=== PATIENT | female | born 1995 | race Native Hawaiian/Other Pacific Islander ===

== ENCOUNTER 2017-10-06 21:13 | Emergency (ER) | payer OTHER ==
[2017-10-06 21:22] VITALS: RESP 16; TEMP 98.3; O2SAT 100
[2017-10-06] MEDS ORDERED: Sodium Chloride 0.9% 1,000 ML IV STA (22:04)
[2017-10-06] MEDS ORDERED: DiphenhydrAMINE 50 mg/ml Inj IV STA (22:04)
[2017-10-06] MEDS ORDERED: DiphenhydrAMINE 50 mg/ml Inj ONE (22:10)
[2017-10-06] MEDS ORDERED: Famotidine 20mg/50ml 20 MG/50 ML BAG IVPB ONE (22:11)
--- NOTE | 2017-10-06 22:41 | ED PDOC ---
HPI: Allergic Reaction Time Seen by Provider: 10/06/17 21:44 Chief Complaint (Nursing): Allergic Reaction Chief Complaint (Provider): Allergic reaction History Per: Patient History/Exam Limitations: no limitations Onset/Duration Of Symptoms: Days Current Symptoms Are (Timing): Still Present Context: Other (medication) Possible Cause: Medication Associated Symptoms: Skin Rash, Itching Home/EMS Treatment: Benadryl Additional History Per: Patient Additional Complaint(s): 22yo [place] female, no past medical history, presents to ER for evaluation of an allergic reaction. Patient states yesterday was day 3 of a course of Cipprofloxacin which she had been taking for a UTI and yesterday evening, she noted a mild itchy rash to her neck and trunk. Patient states she took Benadryl with improvement in her symptoms; additionally reports she called her PMD who changed the cippro to macrobid. Patient states she did not start the macrobid and this evening she noted a recurrent rash to her trunk, neck and groin. She took Pepcid and Benadryl prior to arrival with mild relief of symptoms. Patient states she did have facial swelling but denies any shortness of breath, trouble swallowing. She has no other medical complaints. Past Medical History Reviewed: Historical Data, Nursing Documentation, Vital Signs Vital Signs: Last Vital Signs Temp 98.3 F 10/06/17 21:18 Pulse 94 H 10/06/17 21:18 Resp 16 10/06/17 21:18 BP 160/95 H 10/06/17 21:18 Pulse Ox 100 10/06/17 21:18 - Medical History PMH: No Chronic Diseases - Surgical History Surgical History: No Surg Hx - Family History Family History: States: No Known Family Hx - Home Medications Home Medications: Ambulatory Orders Medication Instructions Recorded Famotidine [Pepcid] 20 mg PO Q12 #14 tab 10/06/17 Methylprednisolone [Medrol Dosepak] 4 mg PO ASDIR #1 pkg 10/06/17 - Allergies Allergies/Adverse Reactions: Allergies Allergy/AdvReac Type Severity Reaction Status Date / Time No Known Allergies Allergy Verified 10/06/17 21:17 Review of Systems ROS Statement: Except As Marked, All Systems Reviewed And Found Negative ENT: Positive for: Other (facial swelling). Negative for: Mouth Swelling, Throat Swelling Skin: Positive for: Rash Physical Exam - Reviewed Nursing Documentation Reviewed: Yes Vital Signs Reviewed: Yes - Physical Exam Appears: Positive for: Non-toxic, No Acute Distress Head Exam: Positive for: ATRAUMATIC, NORMAL INSPECTION, NORMOCEPHALIC Skin: Positive for: Warm, Dry, Rash (urticarial rash noted to neck, chest and back) Eye Exam: Positive for: Normal appearance, EOMI, PERRL ENT: Positive for: Normal ENT Inspection. Negative for: Other (throat swelling) Neck: Positive for: Normal, Supple Cardiovascular/Chest: Positive for: Regular Rate, Rhythm Respiratory: Positive for: Normal Breath Sounds. Negative for: Respiratory Distress Gastrointestinal/Abdominal: Positive for: Normal Exam, Soft. Negative for: Tenderness Extremity: Positive for: Normal ROM Neurologic/Psych: Positive for: Alert, Oriented. 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 Patient was advised to stop usage of Ciprofloxacin, as she has Macrobid to continue to treat UTI. Dx: allergic urticaria Condition: improved Scribe Attestation: Documented by Suzanne Weaver and Loretta Bai, acting as a scribe for Chino Arreola MD Provider Scribe Attestation: All medical record entries made by the Scribe were at my direction and personally dictated by me. I have reviewed the chart and agree that the record accurately reflects my personal performance of the history, physical exam, medical decision making, and the department course for this patient. I have also personally directed, reviewed, and agree with the discharge instructions and disposition.
[2017-10-07 01:01] VITALS: BP 118/70; PULSE 86
== END 2017-10-06 23:45 | disposition home or self-care (01) ==
LOC: H.ER 21:13
DX: L50.0 Allergic urticaria (principal); N39.0 Urinary tract infection, site not specified
CPT/HCPCS: 81025; 96365; 96375; 99283; J1200; J2930; J7040